=== PATIENT | male | born 1950 | race Caucasian/White ===

== ENCOUNTER 2024-02-07 11:20 | Emergency (ER) | payer MEDICARE ==
[2024-02-07] MEDS: METOPROLOL 5 MG/5 ML VIAL IVP STA (12:36)
[2024-02-07 12:39] LABS: BASOPHILS % (AUTO) 0.3 %; EOSINOPHILS # (AUTO) 0.2 10^3/uL (0.0-0.7); EOSINOPHILS % (AUTO) 2.6 %; HCT - HEMATOCRIT 50.1 % (42.0-52.0); HGB - HEMOGLOBIN 17.2 g/dL (14.0-18.0); LYMPHOCYTES % (AUTO) 15.6 %; MEAN CORPUSCULAR HEMOGLOBIN 32.3 pg (27.0-31.0); MEAN CORPUSCULAR HGB CONC 34.3 g/dL (32.0-36.0); MEAN CORPUSCULAR VOLUME 94.2 fL (80.0-94.0); MEAN PLATELET VOLUME 9.8 fL (7.4-11.4); MONOCYTES # (AUTO) 0.6 10^3/uL (0.0-1.0); NEUTROPHILS # (AUTO) 4.5 10^3/uL (1.5-6.6); NEUTROPHILS % (AUTO) 72.2 %; PLT - PLATELET COUNT 241 10^3/uL (130-450); RED BLOOD COUNT 5.32 10^6/uL (4.70-6.10); RED CELL DISTRIBUTION WIDTH 12.5 % (12.0-15.0); WHITE BLOOD COUNT 6.2 x10^3/uL (4.8-10.8)
[2024-02-07 13:15] LABS: THYROID STIMULATING HORMONE 7.21 uIU/mL (0.34-5.60)
--- NOTE | 2024-02-07 13:32 | ED Physician Documentation ---
History of Present Illness - Stated complaint Stated Complaint: LT SIDE FACE/BILAT LEG SWELLING - Chief complaint Chief Complaint: General - History obtained from History obtained from: Patient - Additonal information Additional information: Patient is a 73-year-old male with a history of hypertension And hypothyroidism presenting for evaluation of multiple medical concerns. Patient states he rece ntly arrived here to visit his sister a week ago and is planning on moving up here. They are waiting to get into a primary care and have his insurance changed over to [place] from [place]. He states that he is here to get a refill of his medications as he is not able to get a primary care appointment until the fall. He has concerns regarding nasal polyps that need to be removed and feel that this is at times causing some swelling to the left side of his face. He also reports swelling to bilateral ankles but states that this is better than it has been in the past. He was also seen by his primary care in [place] in November and was told that his PSA was elevated and is interested in having it rechecked.He denies chest pain, dizziness, syncope, having trouble breathing. Denies abdominal complaints. No vomiting or diarrhea. He states he used to be on metoprolol but has been off of it for the past 6 months. He states they were changing around medications and took him off of it 6 months ago but he is unclear as to why. He denies a history though of coronary artery disease, prior MN or stents. He does report drinking 3-4 beers a day. Denies other drug or substance abuse. Review of Systems Constitutional: denies: Fever Cardiac: denies: Chest pain / pressure Respiratory: denies: Dyspnea GI: denies: Abdominal Pain : denies: Dysuria Neurologic: denies: Headache PD PAST MEDICAL HISTORY - Past Medical History Past Medical History: Yes Cardiovascular: Hypertension Endocrine/Autoimmune: HyPOthyroidism Psych: Depression, Anxiety - Past Surgical History Past Surgical History: Yes - Present Medications Home Medications: Ambulatory Orders Medication Instructions Recorded Confirmed Baclofen [Lioresal] 10 mg PO TID PRN 02/07/24 02/07/24 Levothyroxine Sodium 0.5 tab PO DAILY 02/07/24 02/07/24 Losartan/Hydrochlorothiazide 1 each PO DAILY 02/07/24 02/07/24 [Hyzaar 100-25 Tablet] Metoprolol Tartrate [Lopressor] 25 mg PO DAILY #30 tablet 02/07/24 QUEtiapine [SEROquel] 100 mg PO QPM 02/07/24 02/07/24 clonazePAM [Clonazepam] 0.5 mg PO BID 02/07/24 02/07/24 - Allergies Allergies/Adverse Reactions: Allergies Allergy/AdvReac Type Severity Reaction Status Date / Time No Known Drug Allergies Allergy Verified 02/07/24 11:40 - Social History Does the pt smoke?: No Smoking Status: Never smoker Does the pt have substance abuse?: No PD ED PE NORMAL - General General: Alert and oriented X 3, No acute distress, Well developed/nourished - HEENT HEENT: Atraumatic, PERRL, Other (No significant conjunctival injection) - Neck Neck: Supple, no meningeal sign - Cardiac Cardiac: Strong equal pulses, Other (Tachycardic, regular rhythm) - Respiratory Respiratory: No respiratory distress, Clear bilaterally - Abdomen Abdomen: Soft, Non tender, Non distended - Derm Derm: Warm and dry - Extremities Extremities: No calf tenderness / cord, Other (Minimal swelling around bilateral ankles) - Neuro Neuro: Alert and oriented X 3, No motor deficit, No sensory deficit, Normal speech Results - Vitals Vitals: Vital Signs - 24 hr 02/07/24 02/07/24 02/07/24 11:25 12:26 12:30 Temperature 36.4 C L 36.8 C Heart Rate 155 H 145 H 147 H Respiratory 18 26 H 20 Rate Blood Pressure 143/99 H 144/114 H 146/110 H O2 Saturation 95 98 98 02/07/24 02/07/24 02/07/24 13:00 13:30 14:00 Temperature Heart Rate 64 64 63 Respiratory 24 19 19 Rate Blood Pressure 170/90 H 172/111 H 174/95 H O2 Saturation 99 99 100 02/07/24 15:00 Temperature Heart Rate 68 Respiratory 24 Rate Blood Pressure 170/100 H O2 Saturation 100 Oxygen O2 Source Room air - EKG (time done) 1147 EKG releavant findings:: EKG personally interpreted by author of this note. Relevant findings are: Rate 150, supraventricular tachycardia, no STEMI, No prior for comparison 1354 EKG releavant findings:: EKG personally interpreted by author of this note. Relevant findings are: Rate 62, normal sinus rhythm, no STEMI, T wave inversions in lead III, QTc 428 - Labs Labs: Laboratory Tests 02/07/24 02/07/24 02/07/24 12:35 12:35 12:35 WBC 6.2 RBC 5.32 Hgb 17.2 Hct 50.1 MCV 94.2 H MCH 32.3 H MCHC 34.3 RDW 12.5 Plt Count 241 MPV 9.8 Neut # (Auto) 4.5 Lymph # (Auto) 1.0 L Logan # (Auto) 0.6 Eos # (Auto) 0.2 Baso # (Auto) 0.0 Absolute Nucleated RBC 0.00 Nucleated RBC % 0.0 Sodium 126 L Potassium 4.0 Chloride 91 L Carbon Dioxide 29 Anion Gap 6.0 BUN 9 Creatinine 0.8 Estimated GFR (MDRD) 94 Glucose 121 H Calcium 10.0 Total Bilirubin 1.1 H AST 35 ALT 21 Alkaline Phosphatase 73 B-Natriuretic Peptide 211 H Total Protein 7.0 Albumin 4.4 Globulin 2.6 Albumin/Globulin Ratio 1.7 Lipase 13 TSH 7.21 H Free T4 Direct 02/07/24 12:35 WBC RBC Hgb Hct MCV MCH MCHC RDW Plt Count MPV Neut # (Auto) Lymph # (Auto) Logan # (Auto) Eos # (Auto) Baso # (Auto) Absolute Nucleated RBC Nucleated RBC % Sodium Potassium Chloride Carbon Dioxide Anion Gap BUN Creatinine Estimated GFR (MDRD) Glucose Calcium Total Bilirubin AST ALT Alkaline Phosphatase B-Natriuretic Peptide Total Protein Albumin Globulin Albumin/Globulin Ratio Lipase TSH Free T4 Direct 1.05 PD Medical Decision Making - ED course Complexity details: reviewed results, re-evaluated patient, d/w patient, d/w family ED course: Patient is a 73-year-old male with a history of hypothyroidism and hypertension presenting for evaluation of needing refill on medications. Patient recently relocated here from [place]. He states he is going to run out of medications before he is able to get into a PCP as the appointments he was told he could get were not until the fall. At triage he was noted to have an elevated heart rate in the 150s. However he denies feeling dizzy, lightheaded having chest pain or shortness of air. No symptoms to suggest ACS. Doubt pulmonary embolism. Patient used to be on metoprolol but was taken off of this 6 months ago for unclear reasons. Initial EKG reviewed revealing supraventricular tachycardia. Patient responded well to 1 dose of IV Lopressor and was in a normal sinus rhythm. No signs of acute ischemia and no symptoms to suggest acute coronary syndrome or PE. He is ambulatory here and without any symptoms. No significant leg swelling. CBC, chemistry, BNP were obtained and reviewed. Labs are significant for sodium of 126 chloride of 91. TSH is elevated but free T4 is nor mal. Chest x-ray was reviewed. Patient does have some prior labs with him from a [place] and in November of this year his sodium was low at 131. Patient states he is often quite thirsty and does drink a lot of water. I did recommend admission for correction of his sodium but patient does not want to stay in the hospital. We did review potential risks if the sodium continues to fall. I did review his medications and he is on losartan with hydrochlorothiazide. At this time I will recommend cutting this in half and also having patient limit his water intake. His sister is with him and she will take him to the walk-in clinic later this week for recheck of his labs.We will also add on metoprolol. Patient still has several weeks worth of his medications with him so I told him that it would not be appropriate to provide refills at this time and encouraged close follow-up at the walk-in clinic. Patient and sister advised on concerning symptoms to return for. Labs from November 2023 - Na 131. Departure - Departure Disposition: 01 Home, Self Care Clinical Impression: Supraventricular tachycardia, Hyponatremia Condition: Stable Instructions: ED Hyponatremia, ED Tachycardia Pat PSVT Follow-Up: Primary/Walk In [facility] [Provider Group] Prescriptions: Metoprolol Tartrate [Lopressor] 25 mg PO DAILY #30 tablet Comments: You need close follow-up with a primary care provider. If you are not able to get a primary care provider in a timely fashion then you can also use the walk- in clinics to help with primary care needs. Your sodium level which is a measure of your salt is low today at 126. It was 131 when you were seen in [place] in November. This may be related to your diuretic that you are on called hydrochlorothiazide which is part of the losartan tablet that you take. I would recommend cutting this tablet (losartan-hctz) in half per day. In the meanwhile I will add on metoprolol and have also sent this prescription to [facility] in [place]. When you arrived here your heart rate was quite fast but did respond well to IV metoprolol. I would also recommend you decrease your water intake as this may also be driving your sodium level to be low. Again I would recommend you have your labs rechecked on a or Tuesday of this week at the walk-in clinic. However return to the ER if you develop any worsening symptoms such as feeling weakness, confusion or any other concerns. Forms: PCP List Discharge Date/Time: 02/07/24 15:40
[2024-02-07 14:19] VITALS: O2SAT 100
[2024-02-07 14:26] LABS: ALBUMIN 4.4 g/dL (3.2-5.5); ALBUMIN/GLOBULIN RATIO 1.7 (1.0-2.2); BILIRUBIN,TOTAL 1.1 mg/dL (0.2-1.0); CREATININE 0.8 mg/dL (0.6-1.3)
--- NOTE | 2024-02-07 14:34 | XRAY Report ---
PROCEDURE: Chest 1V INDICATIONS: tachycardia TECHNIQUE: One view of the chest was acquired. COMPARISON: None. FINDINGS: Surgical changes and devices: None. Lungs and pleura: No pleural effusions or pneumothorax. Lungs are clear. Mediastinum: Mediastinal contours appear normal. Heart size is mildly enlarged. Bones and chest wall: No suspicious bony lesions. Overlying soft tissues appear unremarkable. IMPRESSION: Cardiomegaly. No acute pulmonary process. Reviewed by: Ernie Olvera MD on 02/07/2024 2:33 PM PDT Approved by: Ernie Olvera MD on 02/07/2024 2:33 PM PDT Station ID: [id number]
[2024-02-07 15:10] VITALS: BP 170/100
== END 2024-02-07 15:40 | disposition home or self-care (01) ==
LOC: ED 11:20
DX: I47.10 Supraventricular tachycardia, unspecified (principal); E87.1 Hypo-osmolality and hyponatremia; E03.9 Hypothyroidism, unspecified; I10 Essential (primary) hypertension; Z79.899 Other long term (current) drug therapy
CPT/HCPCS: 36415; 80053; 83690; 83880; 84439; 84443; 85025; 93005; 96374; 99285

== ENCOUNTER 2024-02-23 11:37 | Outpatient (CLI) | payer MEDICARE | END 2024-02-23 11:38 | disposition home or self-care (01) | LOC: LAB.S 11:37 | DX: R97.20 Elevated prostate specific antigen [PSA] (principal) | CPT/HCPCS: 36415; 84153 ==